=== PATIENT | female | born 2000 | race Two or more races ===

== ENCOUNTER → 2025-02-08 | Outpatient (CLI) | payer BC, SELFPAY ==
--- NOTE | 2025-02-08 | XR_ITS ---
Examination: Transvaginal ultrasound of the pelvis, complete Technique: Transvaginal sonographic images pelvis performed using carvalho scale imaging Exam date and time: February 08, 2025 1721 hours INDICATIONS: Pelvic pain beginning 5 days ago FINDINGS: Uterus 7.5 cm endometrial stripe 0.8 cm No uterine mass or intrauterine gestation Right ovary 3.2 cm arterial flow Mild fluid adjacent to the right ovary Left ovary 3.7 cm arterial flow IMPRESSION: Mild fluid adjacent to the right ovary, differential would include rupture of an ovarian cyst, pelvic inflammatory disease, clinical correlation advised.
--- NOTE | 2025-02-08 | XR_ITS ---
Examination: Pelvic ultrasound, transabdominal, complete Technique: Transabdominal ultrasound of the pelvis performed using grayscale imaging Date and time of exam: February 08, 2025 7006 hours INDICATIONS: Pelvic pain beginning 5 days ago FINDINGS: Uterus 7.5 cm endometrial stripe 0.6 cm No uterine mass or intrauterine gestation Right ovary 3.9 cm arterial flow. Left ovary 4.1 cm arterial flow IMPRESSION: Negative study
--- NOTE | 2025-02-08 | XR_ITS ---
Examination: Retroperitoneal ultrasound, complete Technique: Multiple high resolution grayscale images of the retroperitoneum obtained, including kidneys and bladder. Exam date and time:February 08, 2025 1708 hours INDICATIONS: Hematuria and laboratory examination today. FINDINGS: Right kidney 12.1 cm renal cortex 1.7 cm Mild right hydronephrosis Left kidney 10.9 cm minimal cortex 1.4 cm Mild bilateral renal parenchymal scar formation No bladder mass or bladder calculi Bladder prevoid volume 560.5 cc postvoid volume 10 cc IMPRESSION: Mild right hydronephrosis Mild bilateral renal parenchymal scar formation
== END | disposition home or self-care (01) ==
LOC: CDIM 16:39 → SDIM 16:44
PROVIDERS: PCP Family Medicine; Referring Provider Nurse Practitioner Family; Visit Provider Nurse Practitioner Family
DX: N13.30 Unspecified hydronephrosis (principal); N28.89 Other specified disorders of kidney and ureter; N83.8 Other noninflammatory disorders of ovary, fallopian tube and broad ligament
CPT/HCPCS: 76770; 76830; 76856

== ENCOUNTER → 2025-03-15 | Outpatient (CLI) | payer BC, SELFPAY ==
[2025-03-15 08:43] LABS: HCG Qualitative,Urine Negative
--- NOTE | 2025-03-15 09:00 | XR_ITS ---
Examination: Voiding cystourethrogram 10 spot fluoroscopic films of the bladder Fluoroscopy Date and time: March 15, 2025 0924 hours INDICATIONS: Frequent urination microscopic hematuria 2 months,. TECHNIQUE AND FINDINGS: Bladder filled with 150 cc Cystografin 9 spot fluoroscopic films of the bladder obtained fluoroscopy 0.22 minutes Minimal voiding with no urethral obstruction No ureteral reflux No filling defects in the urinary bladder IMPRESSION: Negative study
[2025-03-15 09:07] LABS: Blood Urea Nitrogen 12 mg/dL (9-23); Creatinine (Component) 0.6 mg/dL (0.6-1.3); eGFR > 60 See Note
== END | disposition home or self-care (01) ==
PROVIDERS: PCP Family Medicine; Referring Provider Family Medicine; Visit Provider Family Medicine
DX: R35.0 Frequency of micturition (principal); R31.29 Other microscopic hematuria
CPT/HCPCS: 36415; 74455; 81025; 82565; 84520; Q9958